=== PATIENT | female | born 1940 | race Caucasian/White ===

== ENCOUNTER 2016-12-23 19:03 | Emergency (ER) | payer OTHER ==
[~2016-12-23] VITALS: Ht 162.6 cm; Wt 71.8 kg
[~2016-12-23 19:03] MED LIST: ASMANEX HFA13 GM IH; ASPIR 8181 M1 PO; ASPIRIN E.C.81 M1 PO; BISOPROLOL-HCT1 EAC1 PO; BISOPROLOL-HCT1 EAC2 PO; CELEXA20 MG PO; CENTRUM COMPLE1 EACH PO; FLORASTOR250 MG PO; FLOVENT 11120 INHALA IH; HYDROCODONE CO120 ML PO; LEVAQUIN500 MG PO; LIDOCAINE700 MG TD; LOFIBRA,TRIGLI160 MG PO; LORTAB 10-3251 EACH PO; LORTAB 7.5/51 TABLET PO; MELATONIN10 M1 PO; MIRALAX255 GM PO; Melatonin PO; NORVASC5 MG PO; PARAFON FORTE500 MG PO; PRAVACHOL40 MG PO; PRILOSEC40 MG PO; Prilosec PO; VITAMIN D2000 INTUN PO; Zocor PO
[2016-12-23] MEDS ORDERED: PERCOCET 5/31 TABLET PO (20:54)
[2016-12-23 21:21] VITALS: BP 114/72
== END 2016-12-23 21:21 | disposition home or self-care (01) ==
LOC: EME 19:03
PROC: 2W3CX1Z Immobilization of Right Lower Arm using Splint (ICD-10-PCS; principal; 2016-12-23)
DX: S52.501A Unspecified fracture of the lower end of right radius, initial encounter for closed fracture (principal); W01.0XXA Fall on same level from slipping, tripping and stumbling without subsequent striking against object, initial encounter; Z88.8 Allergy status to other drugs, medicaments and biological substances
CPT/HCPCS: 73080; 73090; 73130; 99281; 99284

== ENCOUNTER 2017-06-16 11:18 | Emergency (ER) | payer OTHER ==
[~2017-06-16] VITALS: Ht 162.6 cm; Wt 72.3 kg
[~2017-06-16 11:18] MED LIST changes: +PERCOCET 5/31 TABLET PO
[2017-06-16 12:52] VITALS: BP 118/69
== END 2017-06-16 12:54 | disposition home or self-care (01) ==
LOC: EME 11:18
DX: S63.501A Unspecified sprain of right wrist, initial encounter (principal); R51 Headache; W19.XXXA Unspecified fall, initial encounter; M85.831 Other specified disorders of bone density and structure, right forearm; Z79.82 Long term (current) use of aspirin
CPT/HCPCS: 73110; 99281; 99283

== ENCOUNTER 2017-10-21 12:44 | Day surgery (SDC) | payer OTHER ==
[~2017-10-21] VITALS: Ht 162.6 cm; Wt 72.5 kg
[~2017-10-21 12:44] MED LIST changes: -CENTRUM COMPLE1 EACH PO; +FISH OIL 1,2001 EAC4 PO; +HYZAAR 100-11 TABLET PO; +MULTIVITAMIN1 EAC2 PO; +PRAVACHOL20 MG PO; -PRAVACHOL40 MG PO
[2017-10-21 13:22] VITALS: BP 125/81
[2017-10-21 17:20] VITALS: BP 131/64
[2017-10-21 18:15] VITALS: BP 120/56
== END 2017-10-21 18:45 | disposition home or self-care (01) ==
LOC: SDC 12:44
PROC: 01N50ZZ Release Median Nerve, Open Approach (ICD-10-PCS; principal; 2017-10-21)
PROC: 0RQS0ZZ Repair Right Carpometacarpal Joint, Open Approach (ICD-10-PCS; principal; 2017-10-21)
DX: G56.01 Carpal tunnel syndrome, right upper limb (principal); M18.11 Unilateral primary osteoarthritis of first carpometacarpal joint, right hand; G47.30 Sleep apnea, unspecified; I10 Essential (primary) hypertension; K21.9 Gastro-esophageal reflux disease without esophagitis; Z88.5 Allergy status to narcotic agent; Z91.040 Latex allergy status; Z88.8 Allergy status to other drugs, medicaments and biological substances; Z79.82 Long term (current) use of aspirin; Z87.891 Personal history of nicotine dependence
CPT/HCPCS: J0131; J0690; J1100; J1170; J2405; J3010; S0020